=== PATIENT | female | born 2000 | race Caucasian/White ===

== ENCOUNTER 2023-02-25 10:04 | Outpatient (REF) | payer MEDICAID, SELFPAY ==
--- NOTE | 2023-02-25 09:15 | PAPFT_PTH ---
PATIENT: Mary Kate Capone LOC: [facility] U#:[id number] AGE/SX: 22/F ROOM: RE02/25/[address]: Jessica Martinez NP : 2000 BED: DIS: 02/25/2023 SPEC #: [id number] RECD: 02/25/23 13:00 STATUS: SUZANNE RAZA #: [id number] MIKE: 02/25/23 09:[address]: Jessica Martinez NP DEPT: [facility] Cytology RECD BY: Aleshia Castellano ENTERED: 02/25/23 13:00 SP TYPE: PAPFT OTHR DR: Marta Mcnally NP Tissues: 1 - CX/ENDOCX FOR PAP SMEARS Procedures: PAP THIN PREP/UVM Screening Comments: [id number]
== END 2023-02-25 10:05 | disposition home or self-care (01) ==
LOC: LBN 10:04
PROVIDERS: PCP Nurse Practitioner Family; Visit Provider Nurse Practitioner Women's Health
DX: Z12.4 Encounter for screening for malignant neoplasm of cervix (principal)
CPT/HCPCS: 88142

== ENCOUNTER 2023-04-18 16:08 | Outpatient (REF) | payer MEDICAID, SELFPAY | END 2023-04-18 16:09 | disposition home or self-care (01) | LOC: LBN 16:08 | PROVIDERS: PCP Nurse Practitioner Family; Visit Provider Nurse Practitioner Family | DX: J02.9 Acute pharyngitis, unspecified (principal) | CPT/HCPCS: 87070 ==

== ENCOUNTER 2023-09-02 02:44 | Outpatient (CLI) | payer MEDICAID, SELFPAY ==
[2023-09-02 10:17] LABS: Abs Immature Grans 0.01 10^3/uL (0.0-0.06); Absolute Basophil Count 0.03 10^3/uL (0.0-0.2); Absolute Monocyte Count 0.36 10^3/uL (0.1-0.8); Absolute Neutrophil Count 2.44 10^3/uL (1.2-6.7); Basophils % 0.5; Eosinophils % 1.7; HCT 35.6 % (36.0-46.0); HGB 12.1 g/dL (11.2-15.7); Immature Grans % 0.2; Lymphocytes % 49.7; MCV 85 fL (80-95); MPV 9.3 fL (8.0-11.0); Monocytes % 6.2; Neutrophils % 41.7; Platelet Count 259 10^3/uL (130-400); RBC 4.17 10^6/uL (3.93-5.22); RDW 12.6 % (11.7-14.6); RDW-SD 39.4 fL; WBC 5.84 10^3/uL (4.4-10.8)
[2023-09-02 11:53] LABS: ALT 26 U/L (14-59); AST 16 U/L (15-37); Albumin 3.6 g/dL (3.4-5.0); Alkaline Phosphatase 44 U/L (46-116); Anion Gap 7.1 mmol/L (3-11); BUN 10 mg/dL (7-18); Bilirubin, Total 0.6 mg/dL (0.2-1.0); CO2 26.9 mmol/L (21.0-32.0); CREATININE 0.6 mg/dL (0.55-1.02); Calcium 8.7 mg/dL (8.5-10.1); Chloride 103 mmol/L (98-107); Estimated GFR 130.88 (mL/min/1.73m2); Glucose 83 mg/dL (74-106); Potassium 3.8 mmol/L (3.5-5.1); Sodium 137 mmol/L (136-145); TSH (W/Ref FT4) 1.05 uIU/mL (0.36-3.74); Total Protein 7.3 g/dL (6.4-8.2)
== END 2023-09-02 02:45 | disposition home or self-care (01) ==
LOC: LBO 02:44
PROVIDERS: PCP Nurse Practitioner Family; Visit Provider Nurse Practitioner Family
DX: S06.9X9A Unspecified intracranial injury with loss of consciousness of unspecified duration, initial encounter (principal); X58.XXXA Exposure to other specified factors, initial encounter
CPT/HCPCS: 36415; 80053; 83735; 84443; 85025

== ENCOUNTER 2024-02-04 23:45 | Emergency (ER) | payer MEDICAID, SELFPAY ==
[2024-02-04 23:48] VITALS: BP 140/61; PULSE 87; RESP 16; TEMP 36.8; O2SAT 98
[2024-02-04 23:55] VITALS: PULSE 79; RESP 15; O2SAT 99
[2024-02-05] VITALS (19 sets, daily range): BP systolic 99–129; BP diastolic 48–97; PULSE 62–86; RESP 11–21; O2SAT 97–99
--- NOTE | 2024-02-05 00:30 | RT.EKG_ITS ---
APPROVED REPORT Exam: Resting ECG Reason for Exam: seizure Patient Location: E HR:77 bpm ECG Measurements Heart Rate 77 AXIS OH 70 P 68 QRSd 95 QRS 64 QT 379 T -26 QTc 430 Conclusion Sinus rhythm...normal P axis, V-rate 60- 99 limited interp 2/t artifact, repeat requested
--- NOTE | 2024-02-05 00:30 | DI.CT_ITS ---
Exam(s) CT HEAD WO EXAM: CT HEAD WO CLINICAL HISTORY: likely seizure, left sided weakness baseline. TECHNIQUE: Imaging Protocol: Axial computed tomography images with coronal and sagittal reformatted images were created and reviewed COMPARISON: No exams were available for comparison FINDINGS: Ventricles and Extra axial spaces: Ex vacuo dilatation of the right lateral ventricle. Hemorrhage: None. Cerebral parenchyma: No evidence of acute infarct or mass. Large areas of encephalomalacia located in the anterior right frontal lobe is well as high right frontal parietal region. Midline shift: None. Brainstem/Cerebellum: Normal. Calvarium: Normal. Visualized Paranasal sinuses:Clear. Mastoids: Clear. Soft Tissues: Unremarkable. ORBITS: Unremarkable. PITUITARY: Not enlarged. IMPRESSION: No acute intracranial process. Large areas right-sided encephalomalacia. RADIATION DOSE DELIVERED: 599.82mGy.cm Total DLP DATA REPOSITORY: All CT scans at this facility are submitted to the National Radiology Data Registry (NRDR) Dose Index Registry (DIR) with the [employer] (ACR). RADIATION OPTIMIZATION: All CT scans at this facility use at least one of these dose optimization te chniques: automated exposure control; mA and/or kV adjustment per patient size (includes targeted exa ms where dose is matched to clinical indication); or iterative reconstruction.
--- NOTE | 2024-02-05 00:44 | RT.EKG_ITS ---
APPROVED REPORT Exam: Resting ECG Reason for Exam: seizure Patient Location: E HR:72 bpm ECG Measurements Heart Rate 72 AXIS CO 78 P 121 QRSd 87 QRS 65 QT 371 T 23 QTc 408 Conclusion sinus appropriate intervals. otherwise limited interp 2/t artifact
[2024-02-05 00:47] LABS: Abs Immature Grans 0.01 10^3/uL (0.0-0.06); Absolute Basophil Count 0.03 10^3/uL (0.0-0.2); Absolute Eosinophil Count 0.14 10^3/uL (0.0-0.7); Absolute Lymphocyte Count 4.76 10^3/uL (1.2-3.4); Absolute Monocyte Count 0.64 10^3/uL (0.1-0.8); Absolute Neutrophil Count 2.67 10^3/uL (1.2-6.7); Basophils % 0.4 %; Eosinophils % 1.7 %; HCT 36.2 % (36.0-46.0); HGB 12.3 g/dL (11.2-15.7); Immature Grans % 0.1 %; Lymphocytes % 57.7 %; MCH 29.6 pg (27.0-33.0); MCV 87 fL (80-95); MPV 10.1 fL (8.0-11.0); Monocytes % 7.8 %; Neutrophils % 32.3 %; Platelet Count 236 10^3/uL (130-400); RBC 4.16 10^6/uL (3.93-5.22); RDW-SD 38.6 fL; WBC 8.25 10^3/uL (4.4-10.8)
[2024-02-05 01:02] LABS: ALT 21 U/L (14-59); AST 13 U/L (15-37); Alkaline Phosphatase 45 U/L (46-116); Anion Gap 8.9 mmol/L (3-11); BUN 16 mg/dL (7-18); Bilirubin, Total 0.82 mg/dL (0.2-1.0); CO2 26.1 mmol/L (21.0-32.0); CREATININE 0.6 mg/dL (0.55-1.02); Calcium 8.7 mg/dL (8.5-10.1); Chloride 105 mmol/L (98-107); Estimated GFR 130.07 (mL/min/1.73m2); Glucose 94 mg/dL (74-106); Potassium 3.5 mmol/L (3.5-5.1); Sodium 140 mmol/L (136-145); Total Protein 7.4 g/dL (6.4-8.2)
[2024-02-05 01:06] LABS: ETHANOL BLOOD < 3.0 mg/dL (<10)
[2024-02-05 01:08] LABS: Bilirubin Negative (Negative); Blood Negative (Negative); Clarity Clear (Clear); Glucose Negative (Negative); Ketones Negative (Negative); Leukocyte Esterase Negative (Negative); Nitrite Negative (Negative); Specific Gravity 1.025 (1.005-1.025); Urobilinogen 0.2 mg/dL (Up to 0.2); pH 6.5 (5-8)
[2024-02-05 01:20] LABS: *AMPHETAMINES SCREEN URINE Negative (Negative); *BARBITURATES SCREEN URINE Negative (Negative); *BENZODIAZEPINES SCREEN URINE Negative (Negative); Cannabinoids THC Negative (Negative); Cocaine Screen,Urine Negative (Negative); METHADONE URINE SCREEN Negative (Negative); OPIATES URINE SCREEN Negative (Negative)
[2024-02-05 01:23] LABS: Tricyclic Antidepressants Negative (Negative)
--- NOTE | 2024-02-05 01:31 | ED.GENADUL_ITS ---
Discharge Plan Disposition Patient Disposition: Home Condition: Good Discharge Details Clinical Impression: Seizure Primary Care Provider: Marta Mcnally ED Provider: Alley Rader Home Meds and New Rx's Prescriptions: New levetiracetam [Keppra] 500 mg tablet 500 mg PO BID Qty: 120 0RF Continued Nexplanon 68 mg implant 1 implant subdermal ONCE Rx Instructions: as a single dose Discharge Instructions Instructions: Seizures, Adult ED Additional Instructions: Take the keppra twice a day until you are seen by neurology. Call neurology today to reschedule your appointment for as soon as possible. DO NOT DRIVE, SWIM, OPERATE MACHINERY, OR ENGAGE IN ACTIVITY WHERE PASSING OUT COULD CAUSE HARM OR TO YOURSELF OR OTHERS Return to the emergency department for new or worsening symptoms, including if you have another seizure. Referrals: [facility] [Provider Group] Marta Mcnally NP [Primary Care Provider] - Discharge Data Discharge Date/Time-TO BE ENTERED AT DEPARTURE: 02/05/24 03:25 HPI General Mode of arrival: ambulatory . Date/Time Provider Initiated Documentation: 02/04/24 23:54 . Limitations to Documentation: no limitations . Information obtained by: patient . 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 History from patient and significant other at bedside. Overnight she began to feel unwell, felt nauseated, sat up in bed. She recalls this. Partner reports that she then had whole body shaking movements involving her arms and legs and was drooling, she did not respond to him during this time and this lasted about 1-2 minutes. Patient does not recall these events. After the episode was over she was unable to move her left arm or left leg and her smile was 'lopsided'; partner states that she was 'talking garbage' and not making sense during this which lasted about 10 minutes. She feels back to normal now (just tired) and partner states she is acting like her usual self. Had a similar episode about 5 months ago, was supposed to see neurology on the but canceled the ap pointment. No recent head injuries or illness. She is otherwise in her usual state of health with no fevers, chills, rash, vomiting, abdominal pain, dysuria, hematuria, vertigo, chest pain, shortness of breath, numbness, tingling, or new weakness. Related Data Home Medications Medication Instructions Recorded Confirmed etonogestrel 68 mg subdermal 1 implant subdermal ONCE 07/17/22 02/04/24 implant (Nexplanon) levetiracetam 500 mg tablet 500 mg PO BID #120 tabs 02/05/24 (Keppra) Previous Rx's Medication Instructions Recorded levetiracetam 500 mg tablet 500 mg PO BID #120 tabs 02/05/24 (Keppra) Allergies Allergy/AdvReac Type Severity Reaction Status Date / Time amoxicillin Allergy Mild Skin Rash Verified 02/04/24 23:58 General Stated Complaint: GenMedical TAY: 3 Review of Systems Narrative: see HPI Exam Narrative Exam Narrative: General: Alert, well appearing, well nourished, in no acute distress. Head: Normocephalic, atraumatic Neck: Trachea midline, ?Neck supple. ENT: ?MMM.? No oropharygeal lesions or exudate. Cardiac: ?RRR, no murmurs appreciated Resp: No respiratory distress. CTAB. Abd: ?Soft, non-distended, nontender : ?No suprapubic tenderness. No CVA tenderness. Extremities: ?No deformities.? No peripheral edema. Neuro: ? GCS 15.? PERRL.? EOMI.? Fluent speech, no dysarthria. Motor- 5/5 strength right side including shoulder abductors/adductors, elbow flexors/extensors, wrist flexors/extensors, hipflexors/extensors, knee flexors/extensors, ankle dorsiflexors and planter flexors. 4+/5 strength LUE, 4/5 LLE. Sensation- ?Intact to light touch and symmetric multiple dermatomes including upper and lower extremities Coordination- No dysmetria on finger to nose Gait/station: ?Normal stance.? No truncal ataxia. Steady gait with equal normal steps CRANIAL NERVES: II: Pupils equal and reactive, III, IV, : EOM intact, no gaze preference or deviation, no nystagmus. V: normal sensation in V1, V2, and V3 segments bilaterally VII: no asymmetry, no nasolabial fold flattening VIII: normal hearing to speech IX, X: normal palatal elevation, no uvular deviation XI: 5/5 head turn and 5/5 shoulder shrug bilaterally XII: midline tongue protrusion Course Vital Signs Vital signs: Vital Signs Temperature 36.8 C 02/04/24 23:48 Pulse 87 02/04/24 23:48 Respiratory Rate 16 02/04/24 23:48 Blood Pressure 140/61 02/04/24 23:48 Pulse Oximetry 98 02/04/24 23:48 Temperature 36.8 C 02/04/24 23:48 Pulse 73 02/05/24 00:46 Pulse 65 02/05/24 00:50 Respiratory Rate 12 02/05/24 00:50 Respiratory Effort Normal 02/04/24 23:56 Respiratory Depth Normal 02/04/24 23:56 Respiratory Pattern Normal 02/04/24 23:56 Blood Pressure 129/48 L 02/05/24 00:46 Blood Pressure Mean 72 02/05/24 00:46 Pulse Oximetry 97 02/05/24 00:50 Pain Level 0 02/04/24 23:48 Lab/Test Results Lab/Test Results: Laboratory Tests Range/Units 02/04/24 02/05/24 23:55 00:40 WBC (4.4-10.8) 10^3/uL 8.25 RBC (3.93-5.22) 10^6/uL 4.16 Hgb (11.2-15.7) g/dL 12.3 Hct (36.0-46.0) % 36.2 MCV (80-95) fL 87 MCH (27.0-33.0) pg 29.6 MCHC (32.0-36.0) % 34.0 RDW (11.7-14.6) % 12.0 Plt Count (130-400) 10^3/uL 236 MPV (8.0-11.0) fL 10.1 Immature Gran % % 0.1 Neutrophils % % 32.3 Lymphocytes % % 57.7 Monocytes % % 7.8 Eosinophils % % 1.7 Basophils % % 0.4 Nucleated RBC % (0.0-0.3) % 0.0 Absolute Neutrophils (1.2-6.7) 10^3/uL 2.67 Absolute Lymphocytes (1.2-3.4) 10^3/uL 4.76 H Absolute Monocytes (0.1-0.8) 10^3/uL 0.64 Absolute Eosinophils (0.0-0.7) 10^3/uL 0.14 Absolute Basophils (0.0-0.2) 10^3/uL 0.03 Sodium (136-145) mmol/L 140 Potassium (3.5-5.1) mmol/L 3.5 Chloride (98-107) mmol/L 105 Carbon Dioxide (21.0-32.0) mmol/L 26.1 Anion Gap (3-11) mmol/L 8.9 BUN (7-18) mg/dL 16 Creatinine (0.55-1.02) mg/dL 0.6 Est GFR (CKD-EPI 2020) (mL/min/1.73m2) 130.07 Glucose (74-106) mg/dL 94 Calcium (8.5-10.1) mg/dL 8.7 Total Bilirubin (0.2-1.0) mg/dL 0.82 AST (15-37) U/L 13 L ALT (14-59) U/L 21 Alkaline Phosphatase (46-116) U/L 45 L Total Protein (6.4-8.2) g/dL 7.4 Albumin (3.4-5.0) g/dL 4.0 Urine Color (Yellow) Yellow Urine Clarity (Clear) Clear Urine pH (5-8) 6.5 Ur Specific [place] (1.005-1.025) 1.025 Urine Protein (Neg-Trace) mg/dL Negative Urine Ketones (Negative) mg/dL Negative Urine Blood (Negative) Negative Urine Nitrite (Negative) Negative Urine Bilirubin (Negative) Negative Urine Urobilinogen (Up to 0.2) mg/dL 0.2 Ur Leukocyte Esterase (Negative) Negative Urine Glucose (Negative) mg/dL Negative Urine Opiates Screen (Negative) Negative Urine Methadone Screen (Negative) Negative Ur Barbiturates Screen (Negative) Negative Ur Tricyclics Screen (Negative) Negative Ur Amphetamines Screen (Negative) Negative U Benzodiazepines Scrn (Negative) Negative Urine Cocaine Screen (Negative) Negative Ur THC Screen (Negative) Negative Ethyl Alcohol (<10) mg/dL < 3.0 POC- Test(urine) Negative Medical Decision Making 23yo F with 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 Similar episode 5 months ago, has not seen neurology. Vital signs and physical exam reassuring, she does have mild left sided weakness which she states is chronic and baseline. Will evaluate for provoking factors. EKG on arrival with significant artifact limiting interpretations; is sinus with appropriate intervals, not concerning for QT prolongation/torsades. Labs reviewed as below, CBC with no leukocytosis or anemia, CMP with no actionable abnormalities, alcohol negative, UA not infected, not , UDS negative. Head CT independently reviewed, no acute bleed on my view, agree with radioloyg read below. Given two episodes, should likely be on antiepileptic medication. [facility] [place] teleneurology consulted; agree most likely seizure, advised loading dose keppra and starting 500mg BID while awaiting outpatient neuro followup. Given 20mg/kg IV loading dose and discharge with prescription for PO. Discharge instructions and return precautions were reviewed with patient who verbalized understanding. All questions were answered and she is in full agreement with the plan. Imaging Data Radiologic Study: Imaging: CT Scan Radiologist's impression: IMPRESSION: No acute intracranial abnormality. 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 has right hearing aid and glasses Well adolescent visit (Chronic 06/18/15) Medical History Convulsions (01/04/03) Hemiplegia left- following TBI age 2 year Traumatic brain injury age 2 year Uses hearing aid right Wears glasses Family History Mother Healthy adult on routine physical examination Mental disorder DEPRESSION Anxiety Father Essential hypertension Other Essential hypertension Personal history of malignant neoplasm MGM-breast Heart disease PGF, pat great GF Hyperlipidemia PGM Myocardial infarction PGF and pat great grandfather Paternal Grandmother , 71 Alzheimer disease Parkinson disease Paternal Grandfather , 49 Heart disease Maternal Grandmother , 50 Breast cancer Maternal Grandfather Heart disease Hypertension Stroke Other Bleeding disorder Social History (Updated 07/22/23 @ 16:37 by Sharri Ram) Smoking/Tobacco Use Status: Never Second Hand Exposure: No Smoking risk assessment performed?: Yes Alcohol Intake: never Drug use: Never Adopted: No Caregiver/Support person: No Foster care: No Household members: significant other and family Housing: house Communication Needs: None Education Level: high school Do you need help understanding health information?: Never current occupation: [employer] Pets and animals: Yes Pets and animals: cat(s), dog(s) and farm animals Sexually active: Yes Do you think of yourself as: straight/heterosexual Current gender identity: female What is your relationship status?: living with partner How often do you talk on the phone with friends or family?: once per week How often do you get together with friends or relatives?: twice per week How often do you attend mandaeism or hindu services?: 1-3 times per year Do you belong to any clubs or organized social groups?: no Panel score (0-1 are the most socially isolated patients): 2 What type of physical activity do you participate in: walking Duration: > 90 minutes/day Frequency: daily Pretty/Zoroastrianism: No preference Seatbelt use: always Helmet use: Yes Helmet use: always Drive intox or ride w/intox chain saw driver: No Working smoke detector in home: Yes Carbon monox detector in home: Yes Firearms in home: No Female Reproductive History Menstrual Age of Menarche: 16
--- NOTE | 2024-02-05 01:50 | DI.VRAD_ITS ---
PROCEDURE INFORMATION: Exam: CT Head Without Contrast Exam date and time: 02/05/2024 1:13 AM Age: 23 years old Clinical indication: Other: Likely seizure, left sided weakness baseline TECHNIQUE: Imaging protocol: Computed tomography of the head without contrast. COMPARISON: No relevant prior studies available. FINDINGS: Brain: Multifocal encephalomalacia of the right frontal lobe with encephalomalacia of the left anterior inferior frontal lobe.. No hemorrhage. Unremarkable white matter. No mass effect. Cerebral ventricles: No ventriculomegaly. Paranasal sinuses: Visualized sinuses are unremarkable. No fluid levels. Mastoid air cells: Visualized mastoid air cells are well aerated. Bones: Unremarkable. No acute fracture. Soft tissues: Unremarkable. IMPRESSION: No acute intracranial abnormality. Dictated and Authenticated by: Ernesto Frankel MD. Ordering:ENEDELIA Hager MD
[2024-02-05] MEDS: levETIRAcetam 1,000 MG in Normal Saline 100 ML 400 MG IVPB (02:34)
[2024-02-05] MEDS: levETIRAcetam 250 MG TAB 1000 MG PO (02:39)
--- NOTE | 2024-02-08 07:43 | NUR.NOTE ---
Accessed chart to enter another EKG order to match with the second EKG. Nursing Note:
== END 2024-02-05 03:25 | disposition home or self-care (01) ==
PROVIDERS: Emergency Provider Student in an Organized Health Care Education/Training Program; PCP Nurse Practitioner Family
DX: R56.9 Unspecified convulsions (principal); G93.89 Other specified disorders of brain; G81.94 Hemiplegia, unspecified affecting left nondominant side; Z87.820 Personal history of traumatic brain injury
CPT/HCPCS: 36415; 80053; 80307; 81025; 93005; 96374; 99284; 70450; 80320; 81003; 85025; 93010; J1953

== ENCOUNTER → 2024-03-01 01:23 | Outpatient (CLI) | payer MEDICAID, SELFPAY ==
--- NOTE | 2024-03-01 07:00 | DI.MRI_ITS ---
Exam(s) MR BRAIN WO EXAM: MR BRAIN WO CLINICAL HISTORY: new onset seizures,traumatic brain injury,g40.109,s06.9x9a TECHNIQUE: Multiplanar multisequence MRI of the brain was performed. COMPARISON: CT CT HEAD WO from 02/05/2024 FINDINGS: CEREBRAL PARENCHYMA: Again noted is a large area of encephalomalacia in the right frontal and right parietal lobes with ex vacuo dilatation of the atrium of the right lateral ventricle. Ventricles are not significantly enl arged or shifted. There is no blood within the ventricular system. There is evidence of remodeling of the inner table of the skull of the right frontal bone and hypopla hazel of the right frontal sinus is. The left frontal sinuses are unremarkable, as are the ethmoidal a ir cells and sphenoid sinuses and mastoid air cells. No evidence of cerebellar tonsillar ectopia. There is no significant focal signal abnormality in the cerebellar hemispheres nor within the edin, m idbrain, and thalami. There are few small scattered FLAIR bright foci signal abnormality in the periventricular white matte r around the atrium of the left lateral ventricle. There is no significant focal signal abnormality evident on diffusion imaging to suggest acute ischem ic event. No restricted diffusion. PITUITARY GLAND: There is slight prominence of the pituitary gland which exhibits convexity at its cala perior border, extending slightly up into the suprasellar cistern but not to the level of the optic c hiasm. No abnormal finding in the cavernous sinuses. FLOW VOIDS: The expected flow void are noted. No evidence of obvious aneurysm nor obvious vascular ma lformation. PARANASAL SINUSES: As above. ORBITS: No obvious findings. IMPRESSION: Large right side area of encephalomalacia involving the right frontal and parietal lobes. Full eleme nt of porencephaly between the parietal lobe encephalomalacia air and the adjacent large atrium of th e ipsilateral right lateral ventricle. No evidence of hemorrhage nor acute infarct. No restricted diffusion evident. Slightly enlarged pituitary gland. Other findings as above. DATA REPOSITORY:
== END ==
PROVIDERS: PCP Nurse Practitioner Family; Visit Provider Psychiatry & Neurology Neurology
DX: G40.109 Localization-related (focal) (partial) symptomatic epilepsy and epileptic syndromes with simple partial seizures, not intractable, without status epilepticus (principal); S06.9X9A Unspecified intracranial injury with loss of consciousness of unspecified duration, initial encounter
CPT/HCPCS: 70551